=== PATIENT | male | born 1960 | race Caucasian/White ===

== ENCOUNTER 2019-08-25 04:49 | Emergency (ER) | payer SELFPAY ==
--- NOTE | 2019-08-25 05:26 | PDOC ---
Medical Decision Making - Medical Decision Making 08/25/19 05:26 Patient seen by the advanced practice provider under my direct supervision. Ancillary testing reviewed as necessary. I agree with plan as outlined by the advanced practice provider. Discharge - Discharge Information Problems reviewed: Yes Clinical Impression/Diagnosis: Back pain Qualifiers: Back pain location: low back pain Chronicity: unspecified Back pain laterality : right Sciatica presence: with sciatica Sciatica laterality: sciatica of right side Qualified Code(s): M54.41 - Lumbago with sciatica, right side Condition: Fair Disposition: HOME - Additional Discharge Information Prescriptions: Oxycodone HCl/Acetaminophen [Percocet 5-325 mg Tablet] 1 tab PO Q6H #4 tablet MDD 4 - Follow up/Referral - Patient Discharge Instructions Additional Instructions: Call your surgeon this morning for reevaluation and continued pain management. Take Tylenol or Motrin as needed for pain. Follow manufacturers instructions for appropriate dosage. Take Percocet 1 tablet every 6 hours as needed for severe pain. Try not to walk or bear weight as much as possible for the next 3 days. Warm moist heat applied to your back may help alleviate pain. Return to emergency department for discoloration of the foot, numbness or tingling to the foot, worsening pain, or any other concerns. Thank you very much for choosing us to provide your emergent healthcare needs. Llame a schmitt cirujano esta maana para olu reevaluacin y un manejo continuo del dolor. [place] Tylenol o Motrin segn sea necesario para el dolor. Siga las instrucciones del fabricante para la dosis adecuada. [place] Percocet 1 tableta cada 6 horas segn sea necesario para el dolor intenso. Trate de no caminar o soportar peso tanto marybeth sea posible amina los prximos 3 bishop. El calor clido y hmedo aplicado a la espalda puede ayudar a aliviar el dolor. Regrese al departamento de emergencias por decoloracin del pie, entumecimiento u hormigueo en el pie, empeoramiento del dolor o cualquier otra inquietud. Muchas ragini por elegirnos para satisfacer ok necesidades de atencin mdica emergentes. - Post Discharge Activity
[2019-08-25 05:29] VITALS: BP 141/76; PULSE 89; TEMP 98.5; BMI 33.4
--- NOTE | 2019-08-25 05:44 | PDOC ---
History of Present Illness - General Chief Complaint: Pain, Acute Stated Complaint: RIGHT LEG PAIN Time Seen by Provider: 08/25/19 05:21 History Source: Patient Exam Limitations: Language Barrier (Bon #[id number]) - History of Present Illness Initial Comments: 08/25/19 05:38 CHIEF COMPLAINT: Lower back pain HISTORY OF PRESENT ILLNESS: 59-year-old man past medical history of diabetes and lumbar fusion 08/06/2019, who presents to the emergency department with lower back pain radiating to the right leg for 2 days. No neurosensory deficits , no bowel or bladder difficulty incontinence or urinary retention, no saddle anesthesia, no footdrop. No history of IVDU or history of cancer. Patient states he was seen and evaluated for routine postop visit on 08/24 and was told he was get pain medication but none was prescribed. Patient pain was present during the outpatient visit with the specialist. Patient reports he was taking Percocet postop which has helped relieve his pain. Patient has been taking baclofen with no relief of symptoms. REVIEW OF SYSTEMS: GENERAL: Afebrile, denies any weakness RESPIRATORY: No cough, wheezing, or hemoptysis. CARDIAC: No chest pain or shortness of breath MUSCULOSKELETAL: Pain to generalized lower back. No point tenderness. Pain worse on right than left. SKIN : No erythema, no bruising, no deformity. GI/: Denies any abdominal pain, no urinary difficulty, incontinence or urinary retention. RECTAL: Denies any difficulty this A.m. NEUROLOGICAL: Denies any numbness or tingling. No neurosensory deficits. PHYSICAL EXAM: GENERAL: The patient is awake, alert, and fully oriented, in no acute distress. RESPIRATORY: Lungs clear bilaterally, no rhonchi wheezes or crackles CARDIAC: S1-S2 audible, no murmur rub or gallop MUSCULOSKELETAL: Pain to generalized lower back, nonradiating, no tingling or sensory deficit. Less than 2 second cap refill, +2 pedal pulses. No spinal point tenderness. Normal reflexive and no deficits to sensation or strength. Able to perform straight leg raises without difficulty. Ambulatory with right- sided limp. GI/: Abdomen soft, nontender, nondistended. No rebound tenderness. No masses palpable. RECTAL: Deferred patient with no neurological findings SKIN: Warm, Dry, normal turgor, no erythema, no edema no bruising. Past History - Past Medical History Allergies/Adverse Reactions: Allergies Allergy/AdvReac Type Severity Reaction Status Date / Time No Known Allergies Allergy Verified 08/25/19 05:28 - Psycho Social/Smoking Cessation Hx Smoking History: Never smoked Hx Alcohol Use: No Drug/Substance Use Hx: No *Physical Exam - Vital Signs Last Vital Signs Temp Pulse Resp BP Pulse Ox 98.5 F 89 20 141/76 99 08/25/19 04:50 08/25/19 04:50 08/25/19 04:50 08/25/19 04:50 08/25/19 04:50 Medical Decision Making - Medical Decision Making 08/25/19 05:41 A/P: 59-year-old male with right-sided lower back pain with radiation down posterior aspect of the right leg to the toes Able to perform straight leg raise without difficulty No palpable muscle spasms are present Surgical site well-healed without any erythema or drainage present Likely radicular pain status post surgery Percocet 1 tab orally now Discharge home with prescription for 4 tablets of Percocet and instructions to call his surgeon for continued pain management. I discussed the physical exam findings, ancillary test results and final diagnoses with the patient. I answered all of the patient's questions. The patient was satisfied with the care received and felt comfortable with the discharge plan and treatment plan. The patient will call their primary care physician within 24 hours to arrange follow-up and will return to the Emergency Department with any new, persistent or worsening symptoms. Discharge - Discharge Information Problems reviewed: Yes Clinical Impression/Diagnosis: Back pain Qualifiers: Back pain location: low back pain Chronicity: unspecified Back pain laterality : right Sciatica presence: with sciatica Sciatica laterality: sciatica of right side Qualified Code(s): M54.41 - Lumbago with sciatica, right side Condition: Fair Disposition: HOME - Admission No - Follow up/Referral - Patient Discharge Instructions Additional Instructions: Call your surgeon this morning for reevaluation and continued pain management. Take Tylenol or Motrin as needed for pain. Follow manufacturers instructions for appropriate dosage. Take Percocet 1 tablet every 6 hours as needed for severe pain. Try not to walk or bear weight as much as possible for the next 3 days. Warm moist heat applied to your back may help alleviate pain. Return to emergency department for discoloration of the foot, numbness or tingling to the foot, worsening pain, or any other concerns. Thank you very much for choosing us to provide your emergent healthcare needs. Llame a schmitt cirujano esta maana para olu reevaluacin y un manejo continuo del dolor. [place] Tylenol o Motrin segn sea necesario para el dolor. Siga las instrucciones del fabricante para la dosis adecuada. [place] Percocet 1 tableta cada 6 horas segn sea necesario para el dolor intenso. Trate de no caminar o soportar peso tanto marybeth sea posible amina los prximos 3 bishop. El calor clido y hmedo aplicado a la espalda puede ayudar a aliviar el dolor. Regrese al departamento de emergencias por decoloracin del pie, entumecimiento u hormigueo en el pie, empeoramiento del dolor o cualquier otra inquietud. Muchas ragini por elegirnos para satisfacer ok necesidades de atencin mdica emergentes. - Post Discharge Activity
== END 2019-08-25 06:38 | disposition home or self-care (01) ==
LOC: JER 04:49
DX: M54.41 Lumbago with sciatica, right side (principal); E11.9 Type 2 diabetes mellitus without complications; Z98.1 Arthrodesis status
CPT/HCPCS: 99281-25